=== PATIENT | female | born 1940 | race Caucasian/White ===

== ENCOUNTER 2022-04-06 12:21 | Inpatient (IN) | payer OTHER ==
[2022-04-06] MEDS ORDERED: Ondansetron PF 4 MG/2 ML Vial IVP PRN (13:15)
[2022-04-06] MEDS ORDERED: diphenhydrAMINE 50 MG/ML VIAL IVP PRN (13:15)
[2022-04-06] MEDS ORDERED: Morphine 2 MG/ML VIAL SLOW IVP PRN (13:19)
[2022-04-06] MEDS ORDERED: Lorazepam 2 MG/ML VIAL SLOW IVP PRN (13:22)
[2022-04-06] MEDS ORDERED: Bisacodyl 10 MG SUPP PR PRN (13:27)
[2022-04-06] MEDS ORDERED: Morphine 4 MG/ML VIAL SLOW IVP SCH (13:30)
[2022-04-06] MEDS ORDERED: Lorazepam 2 MG/ML VIAL SLOW IVP SCH (13:30)
[2022-04-06] MEDS ORDERED: Scopolamine 1.5 mg/72 hour Patch TOP SCH ×2 (13:45→14:00)
[2022-04-09] MEDS ORDERED: Scopolamine 1.5 mg/72 hour Patch TOP SCH (09:00)
== END 2022-04-06 13:54 | disposition expired | DRG 951 ==
LOC: CSHTELE 12:21
PROVIDERS: ADMIT Family Medicine; ATTEND Family Medicine
DX: Z51.5 Encounter for palliative care (principal); I63.9 Cerebral infarction, unspecified; I25.810 Atherosclerosis of coronary artery bypass graft(s) without angina pectoris; C50.919 Malignant neoplasm of unspecified site of unspecified female breast; F03.90 Unspecified dementia, unspecified severity, without behavioral disturbance, psychotic disturbance, mood disturbance, and anxiety; I10 Essential (primary) hypertension; E78.5 Hyperlipidemia, unspecified; K59.09 Other constipation; I48.91 Unspecified atrial fibrillation